=== PATIENT | male | born 1950 | race Caucasian/White ===

== ENCOUNTER 2025-05-01 17:20 | Outpatient (CLI) | payer MEDICARE, SELFPAY ==
[2025-05-01 18:58] LABS: Add Urine Microscopic? NO; Glucose Urine UA Negative (Normal); Nitrate Urine Negative (Negative); Specific Gravity, Urine 1.025 (1.005-1.030)
[2025-05-01 19:09] LABS: UA Slide Review UA Slide Review Perf
[2025-05-01 19:11] LABS: Charge for UA Resulting for Rev
== END 2025-05-01 17:21 | disposition home or self-care (01) ==
LOC: LAB 17:32
PROVIDERS: Visit Provider Internal Medicine
DX: R82.90 Unspecified abnormal findings in urine (principal); R35.0 Frequency of micturition
CPT/HCPCS: 81003; 87086

== ENCOUNTER 2025-05-15 16:02 | Outpatient (CLI) | payer MEDICARE, MEDICAID, SELFPAY ==
[2025-05-15 16:24] LABS: Glucose Urine UA Negative (Normal); Nitrate Urine Negative (Negative); Specific Gravity, Urine 1.026 (1.005-1.030)
[2025-05-15 16:26] LABS: Add Urine Microscopic? YES; Universal Test for UA Present (0)
[2025-05-15 17:19] LABS: UA Slide Review UA Slide Review Perf
== END 2025-05-15 16:03 | disposition home or self-care (01) ==
PROVIDERS: Visit Provider Internal Medicine
DX: R82.90 Unspecified abnormal findings in urine (principal)
CPT/HCPCS: 81001; 87086